=== PATIENT | male | born 1940 | race Two or more races ===

== ENCOUNTER 2017-07-29 20:50 | Emergency (ER) | payer OTHER ==
[~2017-07-29 20:50] MED LIST: ASPI-807 PO; SERT20OR; SIMV5TAB6; WARF1TAB47
== END 2017-07-29 21:40 | disposition left against medical advice (07) ==
LOC: ER 20:58
DX: Z53.21 Procedure and treatment not carried out due to patient leaving prior to being seen by health care provider (principal)

== ENCOUNTER 2017-10-23 10:30 | Inpatient (IN) | payer OTHER, MEDICAID ==
[~2017-10-23] VITALS: Ht 170.2 cm; Wt 75.3 kg
--- NOTE | 2017-10-23 10:40 | NUR ---
BB FAMILY: GENERALIZED WEAKNESS, FREQUENT FALLS, CONFUSION, SOB. SEEN BY MD FOR EVAL. VSS. SAFETY AND COMFORT MEASURES PROVIDED. WILL MONITOR.
[2017-10-23 11:19] LABS: BASOPHILS % (AUTO) 0.5 % (0.0-2.0); EOSINOPHILS % (AUTO) 1.2 % (0.0-6.0); HEMATOCRIT 48 % (39-51); HEMOGLOBIN 16.4 g/dL (13.5-17.5); LYMPHOCYTES % (AUTO) 24.4 % (20.0-44.0); MEAN CORPUSCULAR HGB CONC 34 g/dl (31.0-36.0); MEAN CORPUSCULAR VOLUME 91 fL (80-96); MONOCYTES # (AUTO) 0.8 /CMM (0.1-1.30); MONOCYTES % (AUTO) 9.5 % (2.0-12.0); NEUTROPHILS # (AUTO) 5.5 /CMM (1.8-8.9); NEUTROPHILS % (AUTO) 64.4 % (43.0-81.0); PLATELET COUNT (AUTO) 149 /CMM (150-450); RDW COEFFICIENT OF VARIATION 14.1 (11.5-15.0); WHITE BLOOD COUNT (AUTO) 8.4 K/uL (4.3-11.0)
--- NOTE | 2017-10-23 11:28 | NUR ---
PT TAKEN TO CT
[2017-10-23 11:34] LABS: BILIRUBIN,URINE Negative (NEGATIVE); BLOOD, URINE Negative Ery/uL (NEGATIVE); COLOR,URINE Dark Yellow (YELLOW); KETONES,URINE Negative (NEGATIVE); LEUKOCYTE ESTERASE ,URINE Negative (NEGATIVE); NITRITE, URINE Negative (NEGATIVE); PROTEIN,URINE Negative (NEGATIVE); UGLUCOSE Negative (NEGATIVE)
[2017-10-23 11:34] LABS: INR 1.39 (0.85-1.15)
[2017-10-23 11:35] LABS: APPEARANCE,URINE Slightly Hazy (CLEAR)
[2017-10-23 11:38] LABS: CALCIUM, SERUM 10.6 mg/dL (8.5-10.1); CARBON DIOXIDE 30 mmol/L (21-32); CHLORIDE 107 mmol/L (98-107); CREATININE 1.3 mg/dL (0.6-1.3); GLUCOSE 97 mg/dL (74-106); POTASSIUM 3.3 mmol/L (3.5-5.1); SODIUM SERUM 142 mmol/L (136-145); UREA NITROGEN, BLOOD 28 mg/dL (7-18)
[2017-10-23 11:40] LABS: BACTERIA,URINE None seen /HPF (None Seen); SQUAMOUS EPITHELIAL CELL,UR Few /HPF (None Seen); WBC,URINE 0-3 /HPF (0-3)
[2017-10-23 11:40] LABS: TROPONIN I < 0.017 ng/mL (0.00-0.056)
[2017-10-23 11:47] LABS: ALANINE AMINOTRANSFERASE 13 U/L (12-78); ALBUMIN 3.7 g/dL (3.4-5.0); ALKALINE PHOSPHATASE 68 U/L (46-116); ASPARTATE AMINOTRANSFERASE 18 U/L (15-37); B-TYPE NATRIURETIC PEPTIDE 1152 PG/ML (0-125); BILIRUBIN,DIRECT 0.4 mg/dL (0.0-0.2); BILIRUBIN,TOTAL 1.7 mg/dL (0.2-1.0); TOTAL PROTEIN, SERUM 7.4 g/dL (6.4-8.2)
[2017-10-23] MEDS ORDERED: ALLO300T2 PO (12:36)
[2017-10-23] MEDS ORDERED: OMEP40CA37 PO (12:36)
[2017-10-23] MEDS ORDERED: ENAL20TA PO (12:36)
[2017-10-23] MEDS ORDERED: RIVA10TA PO (12:36)
[2017-10-23] MEDS ORDERED: METO50TA16 PO (12:36)
[2017-10-23] MEDS ORDERED: IRBE300T19 PO (12:36)
[2017-10-23] MEDS ORDERED: [UNRECOGNIZED DRUG - CODE] PO (12:36)
--- NOTE | 2017-10-23 13:25 | NUR ---
CALLED NURSING ELL TUTOR AND REQUESTED A TELE BED FOR THIS PT.
--- NOTE | 2017-10-23 13:46 | NUR ---
TELE #: [id number] DX: CHF / GENERAL WEAKNESS ACCEPTING MD: DR BURKETT
--- NOTE | 2017-10-23 13:55 | NUR ---
REPORT GIVEN TO SCARLET CHARGE NURSE FOR TELE 114-1.
[2017-10-23] MEDS ORDERED: hydrALAZINE HCL 25 MG TABLET PO PRN (14:00)
[2017-10-23] MEDS ORDERED: ONDANSETRON HCL/PF 4 MG/2 ML VIAL IVP PRN (14:00)
[2017-10-23] MEDS ORDERED: Z GUARD REMEDY 2 OZ OINT TP PRN (14:00)
[2017-10-23] MEDS ORDERED: MAGNESIUM HYDROXIDE 30 ML UDC PO PRN (14:00)
[2017-10-23] MEDS ORDERED: ENOXAPARIN SODIUM 40 MG/0.4 ML DISP.SYRIN SQ SCH (14:00)
[2017-10-23] MEDS ORDERED: MAG HYDROX/AL HYDROX/SIMETH 30 ML UDC PO PRN (14:00)
--- NOTE | 2017-10-23 15:00 | NUR ---
RN NOTE RECEIVED PATIENT FROM ER, 77 YEAR OLD MALE BROUGHT IN BY FAMILY WITH GENERALIZED WEAKNESS, FREQUENT FALLS, CONFUSION, AND SOB. PATIENT IS ALERT AND ORIENTED X 2-3 WITH EPISODES OF FORGETFULNESS, BUT IS ABLE TO VERBALIZE NEEDS IN HIS [place] IN [place] LANGUAGE (SW[place]ISH). BREATHING EVEN AND UNLABORED WITH NO DISTRESS NOTED. ON ASSEMBLER FISHING FLOATS V PACING HR OF 69. REORIENTED PATIENT TO CALL LIGHT AND ENVIRONMENT. URINAL AT BEDSIDE. SKIN INTACT AND WARM TO TOUCH. RIGHT FA GAUGE 20 IV SITE INTACT AND PATENT. ALL SAFETY MEASURES DONE. BED LOW AND LOCKED POSITIONED. WILL CONTINUE TO MONITOR CLOSELY
[2017-10-23 15:48] VITALS: BP 162/82
[2017-10-23] MEDS ORDERED: FUROSEMIDE 20 MG/2 ML VIAL IV ONE (16:00)
[2017-10-23] MEDS ORDERED: POTASSIUM CHLORIDE 20 MEQ TAB.PRT.SR PO ONE (16:00)
[2017-10-23] MEDS: RIVAROXABAN 10 MG TABLET PO SCH (16:25)
[2017-10-23] MEDS ORDERED: FEXOFENADINE HCL (60 MG) 60 MG TABLET PO PRN (17:00)
--- NOTE | 2017-10-23 17:00 | NUR ---
RN NOTE PATIENT REFUSED HIS XARELTO THIS EVENING, PATIENT STATED THAT HE TOOK HIS XARELTO THIS MORNING AND DID NOT WANT TO TAKE IT IN THE EVENING. EXPLAINED RISKS AND BENEFITS X3 AND STILL REFUSED.
--- NOTE | 2017-10-23 19:06 | NUR ---
RN NOTE PATIENT REMAINED STABLE THROUGHOUT THE REST OF SHIFT WITH NO ACUTE CHANGES OR DISTRESS NOTED. WILL ENDORSE TO NEXT SHIFT TO CONTINUE TO MONITOR CONTINUITY OF CARE.
[2017-10-23 20:00] VITALS: BP 156/91
--- NOTE | 2017-10-23 20:15 | NUR ---
FUNMILAYO RN NOTES RECEIVED BEDSIDE REPORT FROM AM NURSE. PATIENT IS ALERT AND ORIENTED X 2-3 WITH EPISODES OF FORGETFULNESS, BUT IS ABLE TO VERBALIZE NEEDS IN HIS [place] LANGUAGE ([place]). BREATHING EVEN AND UNLABORED WITH NO DISTRESS NOTED. ON MAINTENANCE CARPENTER V PACING HR OF 64. REORIENTED PATIENT TO CALL LIGHT AND ENVIRONMENT. URINAL AT BEDSIDE. SKIN INTACT AND WARM TO TOUCH. RIGHT FA GAUGE 20 IV SITE INTACT AND PATENT. ALL SAFETY MEASURES ARE IMPLEMENTED. BED LOW AND LOCKED POSITIONED, CALL LIGHT IN REACH. WILL CONTINUE TO MONITOR CLOSELY .
[2017-10-23 21:00] VITALS: BP 156/91
[2017-10-24] VITALS: BP 162/100
[2017-10-24] MEDS: ZOLPIDEM TARTRATE 5 MG TABLET PO PRN ×2 (02:36→22:17)
[2017-10-24 04:00] VITALS: BP 154/98
[2017-10-24] MEDS: ALBUTEROL FS 2.5 MG/3 ML VIAL.NEB NEB PRN ×2 (04:07→11:38)
--- NOTE | 2017-10-24 06:30 | NUR ---
FUNMILAYO RN NOTE PATIENT REMAINED STABLE THROUGHOUT MY SHIFT WITH NO ACUTE CHANGES OR DISTRESS NOTED . WILL ENDORSE TO NEXT SHIFT TO CONTINUE TO MONITOR CONTINUITY OF CARE.
[2017-10-24 06:58] LABS: BASOPHILS % (AUTO) 0.3 % (0.0-2.0); HEMATOCRIT 50 % (39-51); HEMOGLOBIN 16.6 g/dL (13.5-17.5); LYMPHOCYTES # (AUTO) 1.6 /CMM (0.8-4.8); LYMPHOCYTES % (AUTO) 19.9 % (20.0-44.0); MEAN CORPUSCULAR HGB CONC 33 g/dl (31.0-36.0); MEAN CORPUSCULAR VOLUME 97 fL (80-96); MONOCYTES # (AUTO) 0.8 /CMM (0.1-1.30); MONOCYTES % (AUTO) 9.5 % (2.0-12.0); NEUTROPHILS # (AUTO) 5.7 /CMM (1.8-8.9); NEUTROPHILS % (AUTO) 69.3 % (43.0-81.0); PLATELET COUNT (AUTO) 139 /CMM (150-450); RDW COEFFICIENT OF VARIATION 14.9 (11.5-15.0); RED BLOOD CELL COUNT(AUTO) 5.21 MIL/uL (4.5-6.0); WHITE BLOOD COUNT (AUTO) 8.2 K/uL (4.3-11.0)
--- NOTE | 2017-10-24 07:15 | NUR ---
technician telecommunication systems initial notes Received patient in bed, asleep, head of bed elevated, no SOB or distress noted. On room air and tolerated well. IV HL intact and patent. Alert and oriented x 2-3, thai and little of [place]. No complaint of pain or discomfort noted. Sitter at bedside for constant monitoring. On tele monitor V pacing heart rate of 73. Call light with in patient reach, will continue to monitor accordingly.
[2017-10-24 07:22] LABS: CHOLESTEROL 129 mg/dL (<200); HDL CHOLESTEROL 52 mg/dL (40-60); LDL 67 mg/dL (0-99); TRIGLYCERIDES 82 mg/dL (30-150)
[2017-10-24 07:24] LABS: IRON, SERUM 70 ug/dl (50-175); TOTAL IRON BINDING CAPACITY 256 ug/dl (250-450)
[2017-10-24 07:26] LABS: ALANINE AMINOTRANSFERASE 16 U/L (12-78); ALBUMIN 3.6 g/dL (3.4-5.0); ALKALINE PHOSPHATASE 57 U/L (46-116); ASPARTATE AMINOTRANSFERASE 25 U/L (15-37); BILIRUBIN,DIRECT 0.3 mg/dL (0.0-0.2); BILIRUBIN,TOTAL 1.6 mg/dL (0.2-1.0); CALCIUM, SERUM 10.6 mg/dL (8.5-10.1); CARBON DIOXIDE 26 mmol/L (21-32); CHLORIDE 107 mmol/L (98-107); GLUCOSE 104 mg/dL (74-106); MAGNESIUM 1.9 mg/dL (1.8-2.4); PHOSPHORUS 2.6 mg/dL (2.5-4.9); POTASSIUM 3.5 mmol/L (3.5-5.1); SODIUM SERUM 143 mmol/L (136-145); TOTAL PROTEIN, SERUM 7.2 g/dL (6.4-8.2); UREA NITROGEN, BLOOD 23 mg/dL (7-18)
[2017-10-24 08:00] VITALS: BP 141/98
[2017-10-24] MEDS: PANTOPRAZOLE 40 MG TABLET.DR PO SCH (08:13)
[2017-10-24] MEDS: METOPROLOL TARTRATE 50 MG TABLET PO SCH (08:13)
[2017-10-24] MEDS: ENALAPRIL MALEATE (10 MG) 10 MG TABLET PO SCH (08:13)
[2017-10-24] MEDS: ALLOPURINOL 100 MG TABLET PO SCH (08:13)
[2017-10-24] MEDS: FUROSEMIDE 40 MG/4 ML VIAL IV SCH ×2 (10:46→14:26)
[2017-10-24 11:28] LABS: THYROID STIMULATING HORMONE 1.617 uIU/mL (0.358-3.74)
[2017-10-24 12:00] VITALS: BP 168/98
[2017-10-24 16:00] VITALS: BP_SYST 145; BP_SYST 155; BP_DIAS 100; BP_DIAS 85
[2017-10-24] MEDS: RIVAROXABAN 10 MG TABLET PO SCH (16:19)
--- NOTE | 2017-10-24 19:12 | NUR ---
ms rn closing notes All needs provided, attended, and anticipated. Patient in bed and stable at this time. Call light with in patient reach, endorsed to next shift RN to continue care.
--- NOTE | 2017-10-24 19:50 | NUR ---
FUNMILAYO RN NOTES RECEIVED BEDSIDE REPORT FROM AM NURSE. PATIENT IS ALERT AND ORIENTED X 2-3 WITH EPISODES OF FORGETFULNESS, BUT IS ABLE TO VERBALIZE NEEDS IN HIS [place] LANGUAGE ([place]). BREATHING EVEN AND UNLABORED WITH NO DISTRESS NOTED. REORIENTED PATIENT TO CALL LIGHT AND ENVIRONMENT. URINAL AT BEDSIDE. SKIN INTACT AND WARM TO TOUCH. RIGHT FA GAUGE 20 IV SITE INTACT AND PATENT. ALL SAFETY MEASURES ARE IMPLEMENTED. BED LOW AND LOCKED POSITIONED, CALL LIGHT IN REACH. WILL CONTINUE TO MONITOR .
[2017-10-24 20:00] VITALS: BP 137/79
[2017-10-25 04:00] VITALS: BP 149/91
[2017-10-25 07:00] LABS: CARBON DIOXIDE 30 mmol/L (21-32); CHLORIDE 105 mmol/L (98-107); CREATININE 1.1 mg/dL (0.6-1.3); GLUCOSE 100 mg/dL (74-106); MAGNESIUM 2.1 mg/dL (1.8-2.4); PHOSPHORUS 3.1 mg/dL (2.5-4.9); POTASSIUM 3.2 mmol/L (3.5-5.1); SODIUM SERUM 143 mmol/L (136-145); UREA NITROGEN, BLOOD 29 mg/dL (7-18)
--- NOTE | 2017-10-25 07:30 | NUR ---
RN OPENING NOTES RECEIVED PT. PT IS STABLE AND RESTING IN BED. NO S/S OF RESP DISTRESS, SOB OR C/O PAIN. IV ACCESS LOCATED ON RFA 20G SL. SITTER AT BEDSIDE. RECEIVED CALL FROM DAUGHTER, DAUGHTER WOULD LIKE TO DISCUSS PLAN OF CARE, WILL F/U. SAFETY MEASURESI N PLACE, CALL LIGHT WITHIN REACH. WILL CONTINUE TO MONITOR.
[2017-10-25 08:00] VITALS: BP 141/86
[2017-10-25] MEDS: PANTOPRAZOLE 40 MG TABLET.DR PO SCH (08:14)
[2017-10-25] MEDS: ALLOPURINOL 100 MG TABLET PO SCH (08:15)
[2017-10-25] MEDS: ENALAPRIL MALEATE (10 MG) 10 MG TABLET PO SCH (08:19)
[2017-10-25] MEDS: METOPROLOL TARTRATE 50 MG TABLET PO SCH ×2 (08:20→16:31)
[2017-10-25] MEDS: POTASSIUM CHLORIDE 20 MEQ TAB.PRT.SR PO SCH ×2 (11:01→16:32)
[2017-10-25 13:00] VITALS: BP 141/86
[2017-10-25 15:28] LABS: BASOPHILS % (AUTO) 0.4 % (0.0-2.0); EOSINOPHILS % (AUTO) 1.1 % (0.0-6.0); HEMATOCRIT 51 % (39-51); HEMOGLOBIN 16.8 g/dL (13.5-17.5); LYMPHOCYTES % (AUTO) 20.2 % (20.0-44.0); MEAN CORPUSCULAR HGB CONC 33 g/dl (31.0-36.0); MEAN CORPUSCULAR VOLUME 96 fL (80-96); MONOCYTES # (AUTO) 0.8 /CMM (0.1-1.30); MONOCYTES % (AUTO) 8.2 % (2.0-12.0); NEUTROPHILS % (AUTO) 70.1 % (43.0-81.0); PLATELET COUNT (AUTO) 144 /CMM (150-450); WHITE BLOOD COUNT (AUTO) 9.9 K/uL (4.3-11.0)
[2017-10-25] MEDS: RIVAROXABAN 10 MG TABLET PO SCH (16:31)
--- NOTE | 2017-10-25 19:27 | NUR ---
RN CLOSING NOTES PT IN BED RESTING, SITTER AT BEDSIDE. NO S/S OF RESP DISTRESS OR SOB. NO C/O PAIN AT THIS TIME. ALL PT NEEDS ANTICIPATED AND MET, SAFETY MEASURES IN PLACE, CALL LIGHT IN REACH. WILL ENDORSE TO DOUBLE CUT OFF SAW OPERATOR FOR [place].
--- NOTE | 2017-10-25 20:44 | NUR ---
RN MS INITIAL NOTE RECEIVED PT AWAKE IN BED AO/ W CONFUSION, APPEARS COMFORTABLE, NO SOB, CLEAN AND DRY, SITTER AT BED SIDE, RFA 20G WELL SECURED FLUSHED. PT CLEAN AND DRY, WILL CONT TO MONITOR.
[2017-10-25 21:00] VITALS: BP 136/98
[2017-10-26 05:00] VITALS: BP 131/71
[2017-10-26 06:41] LABS: BASOPHILS % (AUTO) 0.3 % (0.0-2.0); EOSINOPHILS % (AUTO) 1.7 % (0.0-6.0); HEMATOCRIT 51 % (39-51); HEMOGLOBIN 16.9 g/dL (13.5-17.5); LYMPHOCYTES # (AUTO) 2.1 /CMM (0.8-4.8); LYMPHOCYTES % (AUTO) 25.3 % (20.0-44.0); MEAN CORPUSCULAR HGB CONC 33 g/dl (31.0-36.0); MEAN CORPUSCULAR VOLUME 96 fL (80-96); MONOCYTES # (AUTO) 0.9 /CMM (0.1-1.30); MONOCYTES % (AUTO) 10.1 % (2.0-12.0); NEUTROPHILS # (AUTO) 5.3 /CMM (1.8-8.9); NEUTROPHILS % (AUTO) 62.6 % (43.0-81.0); PLATELET COUNT (AUTO) 144 /CMM (150-450); RDW COEFFICIENT OF VARIATION 15.1 (11.5-15.0); RED BLOOD CELL COUNT(AUTO) 5.38 MIL/uL (4.5-6.0); WHITE BLOOD COUNT (AUTO) 8.4 K/uL (4.3-11.0)
[2017-10-26 06:48] LABS: CALCIUM, SERUM 10.8 mg/dL (8.5-10.1); CARBON DIOXIDE 31 mmol/L (21-32); CHLORIDE 106 mmol/L (98-107); CREATININE 1.1 mg/dL (0.6-1.3); GLUCOSE 104 mg/dL (74-106); MAGNESIUM 2.2 mg/dL (1.8-2.4); PHOSPHORUS 2.1 mg/dL (2.5-4.9); POTASSIUM 3.8 mmol/L (3.5-5.1); SODIUM SERUM 143 mmol/L (136-145); UREA NITROGEN, BLOOD 31 mg/dL (7-18)
--- NOTE | 2017-10-26 07:25 | NUR ---
RN NOTES PT IS LAYING DOWN IN BED, AWAKE, WITH SITTER AT BEDSIDE. PT ON RA, RESPIRATIONS ARE EVEN AND UNLABORED. IV ON RFA INTACT AND SL. NO SIGNS OF DISTRESS NOTED. SAFETY MEASURES ARE IN PLACE, CALL LIGHT IS IN REACH. WILL CONTINUE TO MONITOR.
[2017-10-26 08:00] VITALS: BP 132/76
--- NOTE | 2017-10-26 08:00 | NUR ---
RN MS CLOSING NOTE ENDORSED PT AWAKE IN BED AO/ W CONFUSION, APPEARS COMFORTABLE, NO SOB, CLEAN AND DRY, SITTER AT BED SIDE, RFA 20G WELL SECURED FLUSHED. PT CLEAN AND DRY, WILL CONT TO MONITOR.
[2017-10-26] MEDS: ENALAPRIL MALEATE (10 MG) 10 MG TABLET PO SCH (08:12)
[2017-10-26] MEDS: ALLOPURINOL 100 MG TABLET PO SCH (08:12)
[2017-10-26] MEDS: PANTOPRAZOLE 40 MG TABLET.DR PO SCH (08:12)
[2017-10-26] MEDS: METOPROLOL TARTRATE 50 MG TABLET PO SCH ×2 (08:12→16:32)
[2017-10-26] MEDS: HYDROCODONE/APAP 5/325MG 1 EACH TABLET PO PRN (13:34)
--- NOTE | 2017-10-26 14:00 | NUR ---
RN NOTES ATTEMPTED MULTIPLE TIMES BY CASH REGISTER OPERATOR AND RN TO HAVE PT TURN TO HIS OTHER SIDE. PT REFUSES TO BE TURNED OFF OF HIS LEFT SIDE. DAUGHTER OF PT TALKED TO PT IN ORDER TO CONVINCE HIM OF WHY HE NEEDS TO TURN. PT CONTINUES TO REFUSE, AND IS LAYING ON HIS LEFT SIDE.
[2017-10-26] MEDS ORDERED: K PHOS NEUTRAL 250 MG TABLET PO ONE (14:30)
[2017-10-26 16:00] VITALS: BP 109/65
[2017-10-26] MEDS: RIVAROXABAN 10 MG TABLET PO SCH (16:32)
--- NOTE | 2017-10-26 18:37 | NUR ---
RN NOTES PT IS LAYING DOWN IN BED, SLEEPING. PT ON RA, RESPIRATIONS ARE EVEN AND UNLABORED. IV ON RFA INTACT AND SL. ALL MEDS WERE GIVEN ORDERED AND PT NEEDS MET. NO SIGNS OF DISTRESS NOTED. SAFETY MEASURES ARE IN PLACE, CALL LIGHT IS IN REACH. WILL ENDORSE TO HALL SUPERVISOR RN FOR CONTINUITY OF CARE.
--- NOTE | 2017-10-26 19:50 | NUR ---
FUNMILAYO RN NOTES RECEIVED BEDSIDE REPORT FROM AM NURSE. PATIENT IS ALERT AND ORIENTED X 2 WITH EPISODES OF CONFUSION, BUT IS ABLE TO VERBALIZE NEEDS IN HIS [place] LANGUAGE ([place]). BREATHING EVEN AND UNLABORED WITH NO DISTRESS NOTED. REORIENTED PATIENT TO CALL LIGHT AND ENVIRONMENT. URINAL AT BEDSIDE. SKIN INTACT AND WARM TO TOUCH. RIGHT FA GAUGE 20 IV SITE INTACT AND PATENT. ALL SAFETY MEASURES ARE IMPLEMENTED. BED LOW AND LOCKED POSITIONED, CALL LIGHT IN REACH. WILL CONTINUE TO MONITOR .
[2017-10-26 19:57] VITALS: BP 131/71
[2017-10-26 20:00] VITALS: BP 131/71
[2017-10-26] MEDS: ACETAMINOPHEN 325 MG TABLET PO PRN (20:58)
--- NOTE | 2017-10-26 22:00 | NUR ---
FUNMILAYO RN NOTES PATIENT HAS FEVER 100.1 AT 2255, PRN TYLENOL 650 mg/PO IS ADMINISTERED AT 2100. PATIENT'S TEMPERATURE WAS RECHECKED AT 2145 AND IT WAS 99.5. PATIENT IS IN BAD RESTING COMFORTABLY. WILL CONTINUE TO MONITOR CLOSELY.
[2017-10-27 04:00] VITALS: BP 134/77
[2017-10-27 05:00] VITALS: BP 134/77
[2017-10-27] MEDS: PANTOPRAZOLE 40 MG TABLET.DR PO SCH (07:49)
[2017-10-27 08:00] VITALS: BP 138/78
[2017-10-27] MEDS: ALLOPURINOL 100 MG TABLET PO SCH (08:00)
[2017-10-27] MEDS: ENALAPRIL MALEATE (10 MG) 10 MG TABLET PO SCH (08:00)
[2017-10-27] MEDS: ACETAMINOPHEN 325 MG TABLET PO PRN (08:00)
[2017-10-27] MEDS: METOPROLOL TARTRATE 50 MG TABLET PO SCH ×2 (08:57→16:37)
[2017-10-27 13:47] LABS: BASOPHILS % (AUTO) 0.3 % (0.0-2.0); EOSINOPHILS % (AUTO) 0.4 % (0.0-6.0); HEMATOCRIT 50 % (39-51); HEMOGLOBIN 16.6 g/dL (13.5-17.5); LYMPHOCYTES # (AUTO) 1.7 /CMM (0.8-4.8); MEAN CORPUSCULAR HGB CONC 33 g/dl (31.0-36.0); MEAN CORPUSCULAR VOLUME 96 fL (80-96); MONOCYTES # (AUTO) 1.1 /CMM (0.1-1.30); MONOCYTES % (AUTO) 8.9 % (2.0-12.0); NEUTROPHILS # (AUTO) 9.2 /CMM (1.8-8.9); NEUTROPHILS % (AUTO) 76.4 % (43.0-81.0); PLATELET COUNT (AUTO) 145 /CMM (150-450); RDW COEFFICIENT OF VARIATION 14.5 (11.5-15.0); RED BLOOD CELL COUNT(AUTO) 5.21 MIL/uL (4.5-6.0); WHITE BLOOD COUNT (AUTO) 12.1 K/uL (4.3-11.0)
[2017-10-27 14:08] LABS: CALCIUM, SERUM 10.2 mg/dL (8.5-10.1); CARBON DIOXIDE 27 mmol/L (21-32); CHLORIDE 104 mmol/L (98-107); GLUCOSE 135 mg/dL (74-106); PHOSPHORUS 3.2 mg/dL (2.5-4.9); POTASSIUM 3.6 mmol/L (3.5-5.1); SODIUM SERUM 139 mmol/L (136-145); UREA NITROGEN, BLOOD 27 mg/dL (7-18)
[2017-10-27 16:00] VITALS: BP_SYST 113; BP_SYST 126; BP_DIAS 69; BP_DIAS 93
[2017-10-27] MEDS: RIVAROXABAN 10 MG TABLET PO SCH (16:37)
--- NOTE | 2017-10-27 19:00 | NUR ---
MS RN OPENING NOTE RECEIVE PATIENT IS RESTING IN BED, NO FACIAL GRIMACING NOTED FOR PAIN. NO SOB OR DISTRESS NOTED, CALL LIGHT WITHIN REACH. SAFETY MEASURES IMPLEMENTED. WILL CONTINUE TO MONITOR THROUGHOUT SHIFT.
[2017-10-27 20:00] VITALS: BP 159/111
[2017-10-27 20:30] VITALS: BP 145/79
[2017-10-27] MEDS: HYDROCODONE/APAP 5/325MG 1 EACH TABLET PO PRN (20:45)
[2017-10-28 04:00] VITALS: BP 144/72
--- NOTE | 2017-10-28 06:10 | NUR ---
MS RN CLOSING NOTES PT COMFORTABLY ASLEEP AND EASILY AWAKEN, TOLERATING ROOM AIR 98% IN STABLE CONDITION. RESPIRATION EVEN AND UNLABORED. KEPT CLEAN AND DRY AND COMFORTABLE, ALL NURSING CARE RENDERED. NEEDS ATTENDED AND ANTICIPATED, GOOD SKIN CARE PROVIDED. FREQUENT VISUAL CHECK DONE FOR SAFETY EVERY 2 HOURS. ASSISTED REPOSITION EVERY 2 HOURS. ON LOW BED AT ALL TIMES TO ENSURE SAFETY. SAFE HAZARD FREE ENVIRONMENT PROVIDED. NO COMPLAINS OF PAIN. CALL LIGHT WITHIN EASY TO REACH. WILL ENDORSE NEXT SHIFT CONTINUITY OF CARE.
[2017-10-28 08:00] VITALS: BP 115/73
[2017-10-28] MEDS: ENALAPRIL MALEATE (10 MG) 10 MG TABLET PO SCH (08:59)
[2017-10-28] MEDS: PANTOPRAZOLE 40 MG TABLET.DR PO SCH (08:59)
[2017-10-28] MEDS: METOPROLOL TARTRATE 50 MG TABLET PO SCH ×2 (08:59→16:09)
[2017-10-28] MEDS: ALLOPURINOL 100 MG TABLET PO SCH (09:00)
--- NOTE | 2017-10-28 12:45 | NUR ---
RN NOTE PT GOT AGITATED, CONFUSED, ATTEMPTING TO GET OUT OF BED, KICKING, PUSHED TABLE AWAY AND SPITTED ON EVS PERSONNEL. ANG BRYANT CONTACTED AND ORDER FOR SHARON SOFT WRIST RESTRAINTS ORDERED, SITTER ORDERED.
[2017-10-28 16:00] VITALS: BP 142/77
[2017-10-28] MEDS: RIVAROXABAN 10 MG TABLET PO SCH (16:08)
[2017-10-28] MEDS: ACETAMINOPHEN 325 MG TABLET PO PRN (16:10)
[2017-10-28 16:53] LABS: APPEARANCE,URINE CLEAR (CLEAR); BILIRUBIN,URINE NEGATIVE (NEGATIVE); BLOOD, URINE TRACE-INTA Ery/uL (NEGATIVE); COLOR,URINE DARK YELLO (YELLOW); KETONES,URINE NEGATIVE (NEGATIVE); LEUKOCYTE ESTERASE ,URINE NEGATIVE (NEGATIVE); NITRITE, URINE NEGATIVE (NEGATIVE); PH,URINE 5.5 (5.0-8.0); PROTEIN,URINE TRACE mg/dl (NEGATIVE); UGLUCOSE NEGATIVE (NEGATIVE); UROBILINOGEN,URINE 0.2 EU/dL (0.2)
[2017-10-28 17:42] LABS: BACTERIA,URINE 3+ /HPF (None Seen); MUCUS,URINE Few /LPF (None Seen); SQUAMOUS EPITHELIAL CELL,UR None Seen /HPF (None Seen); WBC,URINE NONE SEEN /HPF (0-3)
[2017-10-28 20:00] VITALS: BP 148/88
[2017-10-28] MEDS ORDERED: CEFTRIAXONE 1 G in IV NS 0.9% 50 ML IV SCH (20:00)
--- NOTE | 2017-10-28 20:00 | NUR ---
MS RN NOTES RECEIVED PTS ON BED AWAKE AND RESPONSIVE , WITH PERIOD OF CONFUSION , NO SOB NO DISTRESS NOTED , ALL NEEDS ATTENDED TOO CALL LIGHT WITHIN REACH , DAUGHTER AT BEDSIDE , UPDATED WITH PTS CURRENT CONDITION ALL DUE MEDS GIVEN ORDERED KEPT PTS CLEAN DRY AND COMFORTABLE, V/S STABLE AFEBRILE, WILL CONTINUE TO MONITOR PTS.
[2017-10-28] MEDS ORDERED: IV NS 0.9% 250 ML IV PRN (20:30)
[2017-10-28] MEDS ORDERED: AZITHROMYCIN 500 MG in IV D5W 250 ML IV SCH (21:00)
[2017-10-29 04:00] VITALS: BP 123/70
--- NOTE | 2017-10-29 06:14 | NUR ---
MS RN NOTES PTS REMAINS IN BED AWAKE AND RESPONSIVE , NO SOB NO DISTRESS NOTED, POSSIBLE D/C TODAY V/S STABLE AFEBRILE, WILL ENDORSE TO RN DAY SHIFT FOR CONTINUITY OF CARE.
[2017-10-29 07:01] LABS: BASOPHILS % (AUTO) 0.4 % (0.0-2.0); HEMATOCRIT 50 % (39-51); HEMOGLOBIN 16.7 g/dL (13.5-17.5); LYMPHOCYTES # (AUTO) 2.1 /CMM (0.8-4.8); LYMPHOCYTES % (AUTO) 19.2 % (20.0-44.0); MEAN CORPUSCULAR HGB CONC 33 g/dl (31.0-36.0); MEAN CORPUSCULAR VOLUME 97 fL (80-96); MONOCYTES # (AUTO) 1.2 /CMM (0.1-1.30); NEUTROPHILS # (AUTO) 7.4 /CMM (1.8-8.9); NEUTROPHILS % (AUTO) 68.4 % (43.0-81.0); PLATELET COUNT (AUTO) 167 /CMM (150-450); RDW COEFFICIENT OF VARIATION 14.5 (11.5-15.0); RED BLOOD CELL COUNT(AUTO) 5.21 MIL/uL (4.5-6.0); WHITE BLOOD COUNT (AUTO) 10.9 K/uL (4.3-11.0)
[2017-10-29 08:00] VITALS: BP 120/68
[2017-10-29] MEDS: PANTOPRAZOLE 40 MG TABLET.DR PO SCH (09:28)
[2017-10-29] MEDS: ACETAMINOPHEN 325 MG TABLET PO PRN (09:29)
[2017-10-29] MEDS: ALLOPURINOL 100 MG TABLET PO SCH (09:29)
[2017-10-29] MEDS: METOPROLOL TARTRATE 50 MG TABLET PO SCH ×2 (09:29→16:38)
[2017-10-29] MEDS: ENALAPRIL MALEATE (10 MG) 10 MG TABLET PO SCH (09:29)
[2017-10-29] MEDS ORDERED: LACT1CAP72 PO (13:15)
[2017-10-29] MEDS ORDERED: CEFT1FRO2 IV (13:15)
[2017-10-29] MEDS ORDERED: AZIT250T13 PO (13:15)
[2017-10-29] MEDS ORDERED: METO50TA16 PO (13:15)
[2017-10-29 16:00] VITALS: BP 142/81
[2017-10-29 16:38] VITALS: BP 142/81
[2017-10-29] MEDS: RIVAROXABAN 10 MG TABLET PO SCH (16:39)
[2017-10-29] MEDS ORDERED: LACTOBACILLUS RHAMNOSUS GG 1 EACH CAP.SPRINK PO SCH (17:00)
--- NOTE | 2017-10-29 17:01 | NUR ---
RN NOTE PT DISCHARGED TO [facility] IN STABLE CONDITION, EXIT CARE DONE, DISSCHARGE INSTRUCTIONS GIVEN TO PT AND DAUGHTER, TEACHINGS DONE TO PT AND DAUGHTER, VERBALIZED UNDERSTANDING, REPORT GIVEN TO [facility] IN [facility], BELONGINGS LIST SIGNED, BELONGINGS PROVIDED TO DAUGHTER, IV LEFT IN PLACE FOR ANTIBIOTIC ADMINISTRATION, PT HAD INTACT SKIN. PT LEFT VIA AMBULANCE.
== END 2017-10-29 16:55 | DRG 291 ==
LOC: EDUNIT# 10:30 → ER 10:32 → TELE1 14:19 → MEDSG1 10-24 10:51
PROVIDERS: ADMIT Internal Medicine; ATTEND Internal Medicine
DX: I11.0 Hypertensive heart disease with heart failure (principal); A41.9 Sepsis, unspecified organism; J18.9 Pneumonia, unspecified organism; N17.0 Acute kidney failure with tubular necrosis; G93.41 Metabolic encephalopathy; J98.11 Atelectasis; I25.10 Atherosclerotic heart disease of native coronary artery without angina pectoris; I50.33 Acute on chronic diastolic (congestive) heart failure; I48.91 Unspecified atrial fibrillation; K21.9 Gastro-esophageal reflux disease without esophagitis; Z79.01 Long term (current) use of anticoagulants; Z86.73 Personal history of transient ischemic attack (TIA), and cerebral infarction without residual deficits; Z82.49 Family history of ischemic heart disease and other diseases of the circulatory system; Z95.0 Presence of cardiac pacemaker; M19.90 Unspecified osteoarthritis, unspecified site; Z79.82 Long term (current) use of aspirin; Z79.899 Other long term (current) drug therapy; R29.6 Repeated falls; E78.5 Hyperlipidemia, unspecified; E83.52 Hypercalcemia; F03.90 Unspecified dementia, unspecified severity, without behavioral disturbance, psychotic disturbance, mood disturbance, and anxiety
CPT/HCPCS: 36415; 70450-TC; 71045-TC; 80048-TC; 80061-TC; 80076-TC; 81000-TC; 82306; 82746; 83540-TC; 83605-TC; 83735-TC; 83880; 84100-TC; 84439-TC; 84443-TC; 84484-TC; 85025-TC; 85730-TC; 87040-TC; 87081-TC; 87086-TC; 93307-TC; A4216; A4606; J0456; J0696; J1940; J7050; J7060; Z7610